=== PATIENT | female | born 1965 | race Caucasian/White ===

== ENCOUNTER → 2018-01-31 | Outpatient (CLI) | payer OTHER ==
[~2018-01-31] MED LIST: ADVIL200 MG PO; ATARAX,VISTARIL25 MG PO; BIOTIN 5000MCG PO; DESYREL100 MG PO; FLEXERIL5 M1 PO; MOTRIN800 MG PO; NORCO 5/3251 TABLET PO; Tenex PO; VITAMIN B-122500 MCG SL; VITAMIN D31000 UNIT PO; ZOFRAN4 MG PO; ZOLOFT; ZOLOFT100 MG PO
== END | disposition home or self-care (01) ==
LOC: CDC 11:15
DX: Z01.810 Encounter for preprocedural cardiovascular examination (principal); R00.1 Bradycardia, unspecified; R94.31 Abnormal electrocardiogram [ECG] [EKG]
CPT/HCPCS: 93000

== ENCOUNTER 2018-02-07 09:21 | Day surgery (SDC) | payer OTHER ==
[~2018-02-07] VITALS: Ht 160 cm; Wt 91.6 kg
[2018-02-07 09:46] VITALS: BP 122/65
[2018-02-07 13:30] VITALS: BP 130/73
[2018-02-07 14:19] VITALS: BP 131/73
== END 2018-02-07 14:25 | disposition home or self-care (01) ==
LOC: SDC 09:21
DX: N92.1 Excessive and frequent menstruation with irregular cycle (principal); N81.6 Rectocele; N39.3 Stress incontinence (female) (male); E66.9 Obesity, unspecified; Z68.36 Body mass index [BMI] 36.0-36.9, adult; Z87.440 Personal history of urinary (tract) infections; Z87.442 Personal history of urinary calculi; Z90.49 Acquired absence of other specified parts of digestive tract; Z82.49 Family history of ischemic heart disease and other diseases of the circulatory system
CPT/HCPCS: 87641; 88305; J0131; J1885; J2250; J3010